=== PATIENT | male | born 1980 | race Caucasian/White ===

== ENCOUNTER 2018-01-28 20:20 | Emergency (ER) | payer OTHER, SELFPAY ==
--- NOTE | 2018-01-28 20:20 | DT_ITS ---
This patient was seen during an EMR downtime January 21, 2018 - January 28, 2018. This patient may have a combination of paper and electronic documentation or all paper documentation. All documentation is viewable within the e-chart portion of [facility] for each patient visit.
[2018-01-28 20:21] VITALS: BP 150/96; PULSE 82; RESP 14; TEMP 36.4; O2SAT 100; BMI 22.8
--- NOTE | 2018-01-28 21:11 | ED.DCSUM_ITS ---
- ER Visit Summary Date of Service: 01/28/18 Chief Complaint: Tooth pain History of Present Illness: The patient is a 37 yom who states for the past couple days he has had a discomfort in his right lower jaw. Tonight the pain became more severe. He states that he has had some teeth that are chipped in that area. Nothing that makes it feel better is ice cold water. He has been taking some ibuprofen. He has no doctor and he has no dentist. He is allergic to penicillin he is a smoker. Physical Examination: Afebrile vital signs are stable patient has a palpation on the right lower second molar which is decayed. There is no focal gum swelling. No drainable abscess. There is no trismus. There is no facial erythema or swelling Emergency Department Course and Treatment: The patient will be started on clindamycin and ibuprofen and a few [place]. An oars report was performed. He will need to see dentistry as soon as possible. Impression: 1. Odontalgia This note was generated with [employer] dictation software. It may contain incorrect words, spelling, and punctuation that were not noted in review of the chart prior to signing ED Disposition - Plan for ED Patient: Disposition: Home or Assisted Living Chief Complaint: Dental Instructions: ED Tooth Pain Prescriptions: Ibuprofen [Motrin] 800 mg PO TID PRN PRN #20 tab PRN Reason: Pain Clindamycin [Cleocin] 300 mg PO 4X/DAY #80 cap Additional Instructions: You need to see a dentist as soon as possible.
[2018-01-28] MEDS: Clindamycin HCl 150 MG Capsule 300 MG PO (21:17)
[2018-01-28] MEDS: HYDROcodone Bitartrate/Apap 5/325 Tablet PO (21:18)
[2018-01-28 21:19] VITALS: RESP 18
== END 2018-01-28 21:21 | disposition home or self-care (01) ==
PROVIDERS: Emergency Provider Emergency Medicine
DX: K08.89 Other specified disorders of teeth and supporting structures (principal); K02.9 Dental caries, unspecified; Z88.0 Allergy status to penicillin; F17.200 Nicotine dependence, unspecified, uncomplicated
CPT/HCPCS: 99283